=== PATIENT | female | born 1990 ===

== ENCOUNTER 2018-03-23 17:25 | Emergency (ER) | payer SELFPAY ==
[2018-03-23 18:14] VITALS: RESP 18; TEMP 98.9; O2SAT 100
--- NOTE | 2018-03-23 19:18 | C.PDOC ---
History Of Present Illness 28 y/o female presents to the ER complaining of pain to the right pelvic region which has been present for the past few days. Patient states that she "always" has this pain. Patient reports that the pain becomes worse when she gets her period, her LMP was on 02/20/18. She is also complaining of white vaginal discharge. She notes that she had intercourse yesterday. Denies having nausea, vomiting ,fever and chills. Time Seen by Provider: 03/23/18 18:32 Chief Complaint (Nursing): Abdominal Pain History Per: Patient History/Exam Limitations: no limitations Onset/Duration Of Symptoms: Days Current Symptoms Are (Timing): Still Present Severity: Moderate Past Medical History Reviewed: Historical Data, Nursing Documentation, Vital Signs Vital Signs: Last Vital Signs Temp 98.9 F 03/23/18 19:19 Pulse 74 03/23/18 19:19 Resp 18 03/23/18 19:19 BP 138/82 03/23/18 19:19 Pulse Ox 100 03/23/18 19:36 - Medical History PMH: No Chronic Diseases Surgical History: No Surg Hx Family History: States: No Known Family Hx - Social History Hx Alcohol Use: Yes Hx Substance Use: No - Immunization History Hx Tetanus Toxoid Vaccination: No Hx Influenza Vaccination: No Hx Pneumococcal Vaccination: No Review Of Systems Except As Marked, All Systems Reviewed And Found Negative. Constitutional: Negative for: Fever, Chills Gastrointestinal: Positive for: Abdominal Pain. Negative for: Nausea, Vomiting Physical Exam - Physical Exam Appears: Non-toxic, No Acute Distress Skin: Normal Color, Warm, Dry Head: Atraumatic, Normacephalic Eye(s): bilateral: Normal Inspection, EOMI Nose: Normal Oral Mucosa: Moist Neck: Normal ROM, Supple Chest: Symmetrical Cardiovascular: Rhythm Regular Respiratory: Normal Breath Sounds, No Rales, No Rhonchi, No Wheezing Gastrointestinal/Abdominal: Soft, Tenderness (mild suprapubic tenderness), No Guarding, No Rebound, Other (negative McBurney's) Pelvic: Normal External Exam, Normal Bimanual Exam, No Vaginal Bleeding, Vaginal Discharge (white copious non-odorous), No Cervical Motion Tenderness, No Cervix Open, No Adnexal Tenderness, No Enlarged Uterus Extremity: Bilateral: Atraumatic Neurological/Psych: Oriented x3, Normal Speech ED Course And Treatment O2 Sat by Pulse Oximetry: 100 (RA) Pulse Ox Interpretation: Normal Medical Decision Making Medical Decision Making: Impression: Abdominal Pain Plan: --HCG --UA Urine negative for and UTI. Patient remained afebrile and in no acute distress. Abdomen soft without guarding or rebound. Will treat for BV and Rx given. Patient will be contacted with results of GC Disposition Counseled Patient/Family Regarding: Diagnosis, Need For Followup, Rx Given - Disposition Disposition: HOME/ ROUTINE Disposition Time: 19:35 Condition: STABLE Additional Instructions: Vaya a stuart mdico o la clnica en 2-5 mendoza sin falta, para mas evaluacin. [place] los medicamentos ross indicado. Volver a la vinnie de emergencia en cualquier momento si los sntomas persisten o empeoran. Prescriptions: Metronidazole [Metrogel-Vaginal] 0.75 cre VG HS 7 Days #1 gel Instructions: Bacterial Vaginosis (DC) Print Language: KOREAN - POA Present On Arrival: None - Clinical Impression Clinical Impression: Bacterial vaginitis - PA / CLIENT DELIVERY MANAGER / Resident Statement MD/DO has reviewed & agrees with the documentation as recorded. - Scribe Statement The provider has reviewed the documentation as recorded by the Scribe Stormy Harrisq Provider Attestation All medical record entries made by the Scribe were at my direction and personally dictated by me. I have reviewed the chart and agree that the record accurately reflects my personal performance of the history, physical exam, medical decision making, and the department course for this patient. I have also personally directed, reviewed, and agree with the discharge instructions and disposition.
[2018-03-23 19:24] LABS: HCG,QUALITATIVE URINE NEGATIVE (NEGATIVE)
[2018-03-23 19:25] VITALS: BP 138/82; PULSE 74
[2018-03-23 19:28] LABS: SQUAMOUS EPITHIAL 1 /hpf (0-5); URINE BILIRUBIN NEGATIVE (NEGATIVE); URINE BLOOD NEGATIVE (NEGATIVE); URINE CLARITY Clear (Clear); URINE COLOR Yellow (YELLOW); URINE GLUCOSE (UA) NORMAL (Normal); URINE LEUKOCYTE ESTERASE NEG Leu/uL (Negative); URINE PROTEIN NEGATIVE (NEGATIVE); URINE UROBILINOGEN NORMAL mg/dL (0.2-1.0)
== END 2018-03-23 20:06 | disposition home or self-care (01) ==
LOC: C.ER 17:25
DX: N76.0 Acute vaginitis (principal)